=== PATIENT | female | born 1950 | race Caucasian/White ===

== ENCOUNTER 2018-01-22 19:32 | Inpatient (IN) | payer MEDICARE, MEDICAID ==
[~2018-01-22] VITALS: Ht 168.9 cm; Wt 83.4 kg
[2018-01-22 20:10] LABS: BASOPHILS % (AUTO) 0.2 % (0-1); EOSINOPHILS # (AUTO) 0.1 X10'3 (0-0.9); EOSINOPHILS % (AUTO) 0.7 % (0-6); HEMATOCRIT 48.1 % (35.0-45.0); HEMOGLOBIN 16.4 g/dl (12.0-16.0); LYMPHOCYTES # (AUTO) 0.8 X10'3 (1.1-4.8); LYMPHOCYTES % (AUTO) 4.9 % (21-51); MEAN CORPUSCULAR HEMOGLOBIN 32.5 PG (27.0-31.0); MEAN CORPUSCULAR HGB CONC 34.1 % (33.0-36.5); MEAN CORPUSCULAR VOLUME 95.5 FL (78-98); MONOCYTES # (AUTO) 0.5 X10'3 (0-0.9); MONOCYTES % (AUTO) 3.1 % (2-12); NEUTROPHILS % (AUTO) 91.1 % (42-75); PLATELET COUNT 411 X10'3 (140-440); RED BLOOD COUNT 5.04 X10'6 (4.20-5.60); RED CELL DISTRIBUTION WIDTH 13.2 % (11.5-14.5); WHITE BLOOD COUNT 16.5 X10'3 (4.5-11.0)
[2018-01-22] MEDS ORDERED: ondansetron/PF 4mg/2ml inj IV ONE ×2 (20:30→23:20)
[2018-01-22] MEDS ORDERED: normal saline 1000ml 1,000 ML IV ONE (20:30)
[2018-01-22] MEDS ORDERED: morphine 4 MG/ML inj SYRINge IV ONE ×2 (20:30→23:20)
[2018-01-22 20:55] LABS: PROTHROMBIN TIME 10.1 SECONDS (9.0-12.0)
[2018-01-22 20:56] LABS: ALANINE AMINOTRANSFERASE 22 U/L (12-78); ALBUMIN 3.8 G/DL (3.4-5.0); ALKALINE PHOSPHATASE 81 IU/L (46-116); ANION GAP 17 (8-16); ASPARTATE AMINO TRANSFERASE 18 U/L (10-37); BILIRUBIN,TOTAL 0.7 MG/DL (0.1-1.0); BLOOD UREA NITROGEN 26 MG/DL (7-18); BUN/CREATININE RATIO 17.2 (6.6-38.0); CHLORIDE 97 MMOL/L (99-107); CREATININE 1.51 MG/DL (0.40-0.90); GLUCOSE 175 MG/DL (70-104); PARTIAL THROMBOPLASTIN TIME 26 SECONDS (22-32); POTASSIUM 3.8 MMOL/L (3.5-5.1); SODIUM 134 MMOL/L (135-145); TOTAL CARBON DIOXIDE 20.2 MMOL/L (24-32); TOTAL PROTEIN 7.7 G/DL (6.4-8.2); eGFR 34 ML/MIN
[2018-01-22] MEDS ORDERED: HYDR-4069 PO (23:04)
[2018-01-22] MEDS ORDERED: TRAM50TA2 PO (23:04)
[2018-01-22] MEDS ORDERED: LISI-600 PO (23:04)
[2018-01-22] MEDS ORDERED: DOCU-28 PO (23:04)
[2018-01-22] MEDS ORDERED: ERGO500014 PO (23:04)
[2018-01-22] MEDS ORDERED: ALPR-624 PO (23:04)
[2018-01-22] MEDS ORDERED: ASPI-611 PO (23:04)
[2018-01-22] MEDS ORDERED: HYDROcodone/acetaminophen 5mg/325mg tablet PO PRN (23:05)
[2018-01-22] MEDS ORDERED: acetaminophen 325mg tablet PO PRN ×2 (23:05)
[2018-01-22] MEDS ORDERED: magnesium hydroxide 30ml (MOM) UD suspension PO PRN (23:05)
[2018-01-22] MEDS ORDERED: mag hydrox/Alum hydrox/simeth 30ml oral suspension PO PRN (23:05)
[2018-01-23] VITALS (7 sets, daily range): BP systolic 140–174; BP diastolic 78–97
[2018-01-23] MEDS: normal saline 1000ml 1,000 ML IV SCH ×3 (01:04→19:02)
[2018-01-23] MEDS: ondansetron/PF 4mg/2ml inj IV PRN ×3 (05:20→19:46)
[2018-01-23 06:49] LABS: OCCULT BLOOD STOOL POSITIVE (Neg)
[2018-01-23] MEDS: aspirin 81mg tab.chew PO SCH (07:02)
[2018-01-23] MEDS: docusate sod 100mg capsule PO SCH (07:02)
[2018-01-23] MEDS: nitroGLYCERIN 0.4mg/hour patch TD SCH (07:14)
[2018-01-23] MEDS: lisinopril 10 MG tablet PO SCH (07:14)
[2018-01-23] MEDS: hydrALAZINE 25 MG tablet PO SCH (07:14)
[2018-01-23] MEDS ORDERED: aspirin 81mg tablet.DR PO SCH (08:00)
[2018-01-23 08:11] LABS: BASOPHILS % (AUTO) 0.1 % (0-1); EOSINOPHILS % (AUTO) 0 % (0-6); HEMATOCRIT 41.6 % (35.0-45.0); LYMPHOCYTES # (AUTO) 1.4 X10'3 (1.1-4.8); LYMPHOCYTES % (AUTO) 7.3 % (21-51); MEAN CORPUSCULAR HEMOGLOBIN 32.3 PG (27.0-31.0); MEAN CORPUSCULAR HGB CONC 33.7 % (33.0-36.5); MEAN CORPUSCULAR VOLUME 95.8 FL (78-98); MEAN PLATELET VOLUME 7.8 FL (7.4-10.4); MONOCYTES # (AUTO) 1.4 X10'3 (0-0.9); MONOCYTES % (AUTO) 7.4 % (2-12); NEUTROPHILS % (AUTO) 85.2 % (42-75); PLATELET COUNT 317 X10'3 (140-440); RED BLOOD COUNT 4.34 X10'6 (4.20-5.60); RED CELL DISTRIBUTION WIDTH 13.1 % (11.5-14.5); WHITE BLOOD COUNT 18.8 X10'3 (4.5-11.0)
[2018-01-23 08:40] LABS: ALBUMIN 3.1 G/DL (3.4-5.0); ANION GAP 9 (8-16); BLOOD UREA NITROGEN 19 MG/DL (7-18); BUN/CREATININE RATIO 18.3 (6.6-38.0); CALCIUM 8.2 MG/DL (8.5-10.1); CHLORIDE 104 MMOL/L (99-107); CREATININE 1.04 MG/DL (0.40-0.90); GLUCOSE 130 MG/DL (70-104); POTASSIUM 3.5 MMOL/L (3.5-5.1); SODIUM 135 MMOL/L (135-145); TOTAL CARBON DIOXIDE 22.1 MMOL/L (24-32); eGFR 53 ML/MIN
[2018-01-23] MEDS: metoprolol tartrate 25mg tablet PO SCH ×2 (10:43→19:48)
[2018-01-23] MEDS: atorvastatin 20mg tablet PO SCH (10:43)
[2018-01-23 10:48] LABS: CHOL/HDL RATIO 3.5 (0.00-4.99); CHOLESTEROL 257 MG/DL (0-200); HDL CHOLESTEROL 74 MG/DL (35-60); LDL CHOLESTEROL 158 MG/DL (50-100); TRIGLYCERIDES 90 MG/DL (20-135)
[2018-01-23] MEDS: levoFLOXACIN-Levaquin 500mg/D5 100 ML IV SCH (14:21)
[2018-01-23] MEDS: metoclopramide 5 mg/ml inj IV PRN (16:05)
[2018-01-23] MEDS: metroNIDAZOLE-Flagyl 500mg/NS 100 ML IV SCH ×2 (16:05→23:39)
[2018-01-23 17:25] LABS: HEMATOCRIT 42.2 % (35.0-45.0); HEMOGLOBIN 14.2 g/dl (12.0-16.0); MEAN CORPUSCULAR HEMOGLOBIN 32.2 PG (27.0-31.0); MEAN CORPUSCULAR HGB CONC 33.6 % (33.0-36.5); MEAN CORPUSCULAR VOLUME 95.9 FL (78-98); MEAN PLATELET VOLUME 8.7 FL (7.4-10.4); PLATELET COUNT 337 X10'3 (140-440); RED CELL DISTRIBUTION WIDTH 13.4 % (11.5-14.5); WHITE BLOOD COUNT 18.8 X10'3 (4.5-11.0)
[2018-01-23 17:58] LABS: OCCULT BLOOD STOOL POSITIVE (Neg)
[2018-01-23] MEDS: morphine 2 MG/ML inj. syringe IV PRN (22:29)
[2018-01-24 00:49] LABS: ALBUMIN 3.2 G/DL (3.4-5.0); ANION GAP 11 (8-16); BLOOD UREA NITROGEN 13 MG/DL (7-18); BUN/CREATININE RATIO 12.5 (6.6-38.0); CALCIUM 8.5 MG/DL (8.5-10.1); CHLORIDE 97 MMOL/L (99-107); CREATININE 1.04 MG/DL (0.40-0.90); GLUCOSE 126 MG/DL (70-104); POTASSIUM 3.7 MMOL/L (3.5-5.1); SODIUM 134 MMOL/L (135-145); TOTAL CARBON DIOXIDE 26.1 MMOL/L (24-32); eGFR 53 ML/MIN
[2018-01-24 01:07] LABS: BASOPHILS # (AUTO) 0.1 X10'3 (0-0.2); BASOPHILS % (AUTO) 0.4 % (0-1); EOSINOPHILS % (AUTO) 0 % (0-6); HEMATOCRIT 43.9 % (35.0-45.0); HEMOGLOBIN 15.1 g/dl (12.0-16.0); LYMPHOCYTES # (AUTO) 1.5 X10'3 (1.1-4.8); LYMPHOCYTES % (AUTO) 8.2 % (21-51); MEAN CORPUSCULAR HEMOGLOBIN 32.8 PG (27.0-31.0); MEAN CORPUSCULAR HGB CONC 34.4 % (33.0-36.5); MEAN CORPUSCULAR VOLUME 95.2 FL (78-98); MEAN PLATELET VOLUME 9.1 FL (7.4-10.4); MONOCYTES # (AUTO) 1.5 X10'3 (0-0.9); MONOCYTES % (AUTO) 8.3 % (2-12); NEUTROPHILS # (AUTO) 14.6 X10'3 (1.8-7.7); NEUTROPHILS % (AUTO) 83.1 % (42-75); PLATELET COUNT 325 X10'3 (140-440); RED BLOOD COUNT 4.61 X10'6 (4.20-5.60); RED CELL DISTRIBUTION WIDTH 12.2 % (11.5-14.5); WHITE BLOOD COUNT 17.8 X10'3 (4.5-11.0)
[2018-01-24 02:00] VITALS: BP 154/84
[2018-01-24] MEDS: ondansetron/PF 4mg/2ml inj IV PRN ×3 (03:33→19:29)
[2018-01-24] MEDS: morphine 2 MG/ML inj. syringe IV PRN (03:34)
[2018-01-24] MEDS: normal saline 1000ml 1,000 ML IV SCH ×3 (05:02→19:30)
[2018-01-24 07:08] VITALS: BP 140/76
[2018-01-24] MEDS: levoFLOXACIN-Levaquin 500mg/D5 100 ML IV SCH (07:43)
[2018-01-24] MEDS: metroNIDAZOLE-Flagyl 500mg/NS 100 ML IV SCH ×3 (07:43→23:35)
[2018-01-24] MEDS: hydrALAZINE 25 MG tablet PO SCH (07:44)
[2018-01-24] MEDS: atorvastatin 20mg tablet PO SCH (07:44)
[2018-01-24] MEDS: lisinopril 10 MG tablet PO SCH (07:44)
[2018-01-24] MEDS: aspirin 81mg tab.chew PO SCH (07:44)
[2018-01-24] MEDS: metoprolol tartrate 25mg tablet PO SCH ×2 (07:44→19:29)
[2018-01-24] MEDS: nitroGLYCERIN 0.4mg/hour patch TD SCH (07:44)
[2018-01-24] MEDS: metoclopramide 5 mg/ml inj IV PRN ×2 (07:59→15:31)
[2018-01-24] MEDS: docusate sod 100mg capsule PO SCH (08:00)
[2018-01-24] MEDS ORDERED: CHOL10002 PO (09:14)
[2018-01-24] MEDS: vitamin D (cholecalciferol) 1,000 unit tablet PO SCH (09:17)
[2018-01-24 11:47] LABS: C DIFF ANTIGEN NEGATIVE (NEGATIVE); C DIFF SPECIMEN=DIARRHEA? ACCEPTABLE; C DIFFICILE TOXINS A&B NEGATIVE (Neg)
[2018-01-24 12:07] VITALS: BP 126/76
[2018-01-24] MEDS: HYDROcodone/acetaminophen 10/325mg tab PO PRN ×2 (12:14→18:31)
[2018-01-24 12:46] LABS: HEMOGLOBIN 14.5 g/dl (12.0-16.0); MEAN CORPUSCULAR HEMOGLOBIN 32.4 PG (27.0-31.0); MEAN CORPUSCULAR HGB CONC 33.7 % (33.0-36.5); MEAN CORPUSCULAR VOLUME 96.2 FL (78-98); MEAN PLATELET VOLUME 8.4 FL (7.4-10.4); PLATELET COUNT 301 X10'3 (140-440); RED BLOOD COUNT 4.47 X10'6 (4.20-5.60); WHITE BLOOD COUNT 17.7 X10'3 (4.5-11.0)
[2018-01-24 15:58] VITALS: BP 147/81
[2018-01-24 18:20] VITALS: BP 150/73
[2018-01-24 22:40] VITALS: BP 145/74
[2018-01-25 02:45] VITALS: BP 150/75
[2018-01-25] MEDS: ondansetron/PF 4mg/2ml inj IV PRN ×4 (03:04→23:08)
[2018-01-25] MEDS: ALPRAZolam 0.5mg tablet PO PRN ×3 (03:08→23:08)
[2018-01-25] MEDS: normal saline 1000ml 1,000 ML IV SCH ×2 (05:25→21:55)
[2018-01-25 05:27] LABS: BASOPHILS % (AUTO) 0.2 % (0-1); EOSINOPHILS % (AUTO) 0 % (0-6); HEMATOCRIT 40.8 % (35.0-45.0); HEMOGLOBIN 13.7 g/dl (12.0-16.0); LYMPHOCYTES # (AUTO) 1.9 X10'3 (1.1-4.8); LYMPHOCYTES % (AUTO) 13.6 % (21-51); MEAN CORPUSCULAR HEMOGLOBIN 32.1 PG (27.0-31.0); MEAN CORPUSCULAR HGB CONC 33.6 % (33.0-36.5); MEAN CORPUSCULAR VOLUME 95.5 FL (78-98); MONOCYTES # (AUTO) 1.6 X10'3 (0-0.9); MONOCYTES % (AUTO) 11.2 % (2-12); NEUTROPHILS # (AUTO) 10.8 X10'3 (1.8-7.7); PLATELET COUNT 316 X10'3 (140-440); RED BLOOD COUNT 4.28 X10'6 (4.20-5.60); RED CELL DISTRIBUTION WIDTH 12.6 % (11.5-14.5); WHITE BLOOD COUNT 14.4 X10'3 (4.5-11.0)
[2018-01-25 05:52] LABS: ALBUMIN 2.8 G/DL (3.4-5.0); ANION GAP 10 (8-16); BLOOD UREA NITROGEN 11 MG/DL (7-18); BUN/CREATININE RATIO 12.6 (6.6-38.0); CALCIUM 7.8 MG/DL (8.5-10.1); CHLORIDE 99 MMOL/L (99-107); CREATININE 0.87 MG/DL (0.40-0.90); GLUCOSE 121 MG/DL (70-104); SODIUM 134 MMOL/L (135-145); TOTAL CARBON DIOXIDE 25.1 MMOL/L (24-32); eGFR 65 ML/MIN
[2018-01-25 06:00] VITALS: BP 142/73
[2018-01-25] MEDS ORDERED: aminophylline 250mg/10ml inj. IV PRN (06:25)
[2018-01-25] MEDS ORDERED: metoprolol tartrate 1mg/ml inj IV PRN (06:25)
[2018-01-25] MEDS ORDERED: nitroGLYCERIN 0.4mg SUBLingual tab SL PRN (06:25)
[2018-01-25] MEDS ORDERED: regadenoson 0.4mg/5ml syringe IV ONE (06:25)
[2018-01-25 06:26] LABS: POTASSIUM 2.3 MMOL/L (3.5-5.1)
[2018-01-25] MEDS ORDERED: potassium Cl 20 mEq SR tablet PO PRN (07:40)
[2018-01-25] MEDS ORDERED: magnesium 4gm in 100ml NS 100 ML IV PRN (07:40)
[2018-01-25] MEDS ORDERED: potassium Cl 40MEQ/NS 500ml 500 ML IV PRN (07:40)
[2018-01-25] MEDS ORDERED: magnesium 1gm/100ml D5W IVPB 100 ML IV PRN (07:40)
[2018-01-25 07:52] LABS: MAGNESIUM 1.6 MG/DL (1.5-2.4)
[2018-01-25] MEDS: potassium Cl 20 mEq SR tablet PO PRN ×3 (07:59→20:14)
[2018-01-25] MEDS: docusate sod 100mg capsule PO SCH (08:00)
[2018-01-25] MEDS: metroNIDAZOLE-Flagyl 500mg/NS 100 ML IV SCH ×3 (08:00→23:09)
[2018-01-25] MEDS: lactobacillus rhamnosus 10,000 MMU CELLS/CAPSULE PO SCH ×2 (08:03→20:11)
[2018-01-25] MEDS: hydrALAZINE 25 MG tablet PO SCH (08:03)
[2018-01-25] MEDS: vitamin D (cholecalciferol) 1,000 unit tablet PO SCH (08:06)
[2018-01-25] MEDS: metoprolol tartrate 25mg tablet PO SCH ×2 (08:06→20:11)
[2018-01-25] MEDS: aspirin 81mg tab.chew PO SCH (08:07)
[2018-01-25] MEDS: atorvastatin 20mg tablet PO SCH (08:07)
[2018-01-25] MEDS: lisinopril 10 MG tablet PO SCH (08:08)
[2018-01-25] MEDS: nitroGLYCERIN 0.4mg/hour patch TD SCH (08:08)
[2018-01-25] MEDS ORDERED: ALPRAZolam 0.5mg tablet PO ONE (08:25)
[2018-01-25] MEDS: levoFLOXACIN-Levaquin 500mg/D5 100 ML IV SCH (10:36)
[2018-01-25 11:00] VITALS: BP 110/69
[2018-01-25 15:00] VITALS: BP 130/73
[2018-01-25 19:00] VITALS: BP 136/72
[2018-01-25 23:00] VITALS: BP 161/87
[2018-01-26] VITALS (12 sets, daily range): BP systolic 126–175; BP diastolic 69–83
[2018-01-26] MEDS: potassium Cl 40MEQ/NS 500ml 500 ML IV PRN ×2 (00:46→04:49)
[2018-01-26 04:59] LABS: BASOPHILS # (AUTO) 0.1 X10'3 (0-0.2); BASOPHILS % (AUTO) 0.6 % (0-1); EOSINOPHILS % (AUTO) 0.1 % (0-6); HEMATOCRIT 38.1 % (35.0-45.0); LYMPHOCYTES # (AUTO) 2.2 X10'3 (1.1-4.8); MEAN CORPUSCULAR HEMOGLOBIN 32.6 PG (27.0-31.0); MEAN PLATELET VOLUME 8.7 FL (7.4-10.4); MONOCYTES # (AUTO) 1.3 X10'3 (0-0.9); MONOCYTES % (AUTO) 12.5 % (2-12); NEUTROPHILS % (AUTO) 65.8 % (42-75); PLATELET COUNT 283 X10'3 (140-440); RED BLOOD COUNT 3.97 X10'6 (4.20-5.60); RED CELL DISTRIBUTION WIDTH 13.2 % (11.5-14.5); WHITE BLOOD COUNT 10.6 X10'3 (4.5-11.0)
[2018-01-26 05:16] LABS: ALBUMIN 2.5 G/DL (3.4-5.0); ANION GAP 11 (8-16); BLOOD UREA NITROGEN 7 MG/DL (7-18); CALCIUM 7.6 MG/DL (8.5-10.1); CHLORIDE 103 MMOL/L (99-107); CREATININE 0.88 MG/DL (0.40-0.90); GLUCOSE 112 MG/DL (70-104); MAGNESIUM 1.4 MG/DL (1.5-2.4); POTASSIUM 3.3 MMOL/L (3.5-5.1); SODIUM 138 MMOL/L (135-145); eGFR 64 ML/MIN
[2018-01-26] MEDS: ondansetron/PF 4mg/2ml inj IV PRN ×2 (05:16→10:54)
[2018-01-26] MEDS ORDERED: magnesium Cl slow-release 64mg tablet PO PRN (06:40)
[2018-01-26] MEDS: normal saline 1000ml 1,000 ML IV SCH (07:41)
[2018-01-26] MEDS: lactobacillus rhamnosus 10,000 MMU CELLS/CAPSULE PO SCH (07:45)
[2018-01-26] MEDS: vitamin D (cholecalciferol) 1,000 unit tablet PO SCH (07:45)
[2018-01-26] MEDS: aspirin 81mg tab.chew PO SCH (07:45)
[2018-01-26] MEDS: atorvastatin 20mg tablet PO SCH (07:45)
[2018-01-26] MEDS: docusate sod 100mg capsule PO SCH (08:00)
[2018-01-26] MEDS: nitroGLYCERIN 0.4mg/hour patch TD SCH (08:00)
[2018-01-26] MEDS ORDERED: regadenoson 0.4mg/5ml syringe IV ONE ×2 (09:00→09:14)
[2018-01-26] MEDS ORDERED: aminophylline 250mg/10ml inj. IV PRN (09:00)
[2018-01-26] MEDS ORDERED: aminophylline inj. 10 ML IV ONE (09:14)
[2018-01-26] MEDS: metoprolol tartrate 25mg tablet PO SCH (10:49)
[2018-01-26] MEDS: hydrALAZINE 25 MG tablet PO SCH (10:49)
[2018-01-26] MEDS: lisinopril 10 MG tablet PO SCH (10:49)
[2018-01-26] MEDS: ALPRAZolam 0.5mg tablet PO PRN (10:50)
[2018-01-26] MEDS: metroNIDAZOLE-Flagyl 500mg/NS 100 ML IV SCH (11:18)
[2018-01-26] MEDS ORDERED: METO25TA6 PO (12:23)
[2018-01-26] MEDS ORDERED: ATOR20TA66 PO (12:23)
[2018-01-26] MEDS ORDERED: LEVO500T89 PO (12:23)
[2018-01-26] MEDS ORDERED: METR500T4 PO (12:23)
[2018-01-26] MEDS: levoFLOXACIN-Levaquin 500mg/D5 100 ML IV SCH (13:28)
[2018-01-26] MEDS ORDERED: MAGN400C PO (14:24)
[2018-01-26] MEDS ORDERED: POTA20TA19 PO (14:24)
[2018-01-26] MEDS ORDERED: potassium Cl 20 mEq SR tablet PO STA (14:28)
== END 2018-01-26 15:00 | disposition home or self-care (01) | DRG 682 ==
LOC: ER 19:33 → ED HOLD 23:24 → PCU 3S 01-23 00:36
PROVIDERS: ADMIT Hospitalist; ATTEND Family Medicine
PROC: 4A02XM4 Measurement of Cardiac Total Activity, External Approach (ICD-10-PCS; principal; 2018-01-26)
PROC: 3E033HZ Introduction of Radioactive Substance into Peripheral Vein, Percutaneous Approach (ICD-10-PCS; 2018-01-26)
DX: N17.0 Acute kidney failure with tubular necrosis (principal); R65.11 Systemic inflammatory response syndrome (SIRS) of non-infectious origin with acute organ dysfunction; A09 Infectious gastroenteritis and colitis, unspecified; E87.2 Acidosis; E87.1 Hypo-osmolality and hyponatremia; D64.9 Anemia, unspecified; E78.5 Hyperlipidemia, unspecified; E86.0 Dehydration; F41.9 Anxiety disorder, unspecified; I10 Essential (primary) hypertension; I25.10 Atherosclerotic heart disease of native coronary artery without angina pectoris; J44.9 Chronic obstructive pulmonary disease, unspecified; R74.8 Abnormal levels of other serum enzymes; I08.1 Rheumatic disorders of both mitral and tricuspid valves; E87.6 Hypokalemia; E78.00 Pure hypercholesterolemia, unspecified; I25.2 Old myocardial infarction; Z90.49 Acquired absence of other specified parts of digestive tract; Z90.722 Acquired absence of ovaries, bilateral; Z95.1 Presence of aortocoronary bypass graft; Z88.1 Allergy status to other antibiotic agents; Z88.8 Allergy status to other drugs, medicaments and biological substances; Z79.82 Long term (current) use of aspirin; Z79.899 Other long term (current) drug therapy; Z87.891 Personal history of nicotine dependence
CPT/HCPCS: 36415; 71045; 74176; 78452; 80048; 80053; 80061; 82272; 83605; 83735; 84132; 84484; 85025; 85027; 85610; 85730; 87045; 87046; 87070; 87324; 87449; 89055; 93005; 93017; 93306; 96361; 96374; 96375; 99285; A9500; G0378; J0280; J1956; J2270; J2405; J2765; J3480; J3490; J7030